=== PATIENT | female | born 1950 | race Caucasian/White ===

== ENCOUNTER → 2021-01-12 10:46 | Outpatient (CLI) | payer OTHER, SELFPAY ==
--- NOTE | ~2021-01-12 | MM_ITS ---
EXAMINATION: MM screening [facility] BI w guillermo HISTORY: Screening mammogram TECHNIQUE: Craniocaudal and mediolateral oblique 3-D tomosynthesis images were obtained and synthetic 2-D images were generated. CAD analysis was submitted and interpreted. COMPARISON: 03/21/2019, 02/06/2018 BREAST PARENCHYMAL COMPOSITION: There are scattered areas of fibroglandular density. FINDINGS: There is no evidence of suspicious mass, calcification, or architectural distortion to sugg est malignancy in either breast. There has been no suspicious interval change. IMPRESSION: 1. No mammographic evidence of malignancy. 2. Recommend routine screening mammography in one year. BI-RADS Category 1: Negative Reviewed, dictated and finalized at location A. [facility]
== END ==
PROVIDERS: PCP Internal Medicine; Visit Provider Internal Medicine
DX: Z12.31 Encounter for screening mammogram for malignant neoplasm of breast (principal)
CPT/HCPCS: 77063; 77067

== ENCOUNTER 2021-08-29 21:36 | Emergency (ER) | payer OTHER, SELFPAY ==
[2021-08-29 21:39] VITALS: BP 150/61; PULSE 78; RESP 16; TEMP 36.4; O2SAT 97
--- NOTE | 2021-08-29 21:57 | PC.NURSE ---
vorb for erythromycin ointment x1 from dr sandoval
--- NOTE | 2021-08-29 21:58 | ED.EYEPROB ---
HPI - Eye Problem General Chief complaint: Eye Problems Stated complaint: herminia in eye Time Seen by Provider: 08/29/21 21:45 Source: patient History of Present Illness HPI Narrative: Patient presents with a foreign body sensation in her eye. Patient first was watching the fireworks and felt like herminia got into her eye. She is attempted to rinse her eye out multiple times without relief of her symptoms so she came to the ER for further evaluation. Reports a foreign body sensation in her eye is painful sharp constant no clear aggravating alleviating factors. Symptoms did not worsen with bright lights. She denies any pain around the eye denies any blurry vision or changes in vision. Patient reports history of cataract surgery denies any contact lens use. Related Data Home Medications Medication Instructions Recorded Confirmed levothyroxine 100 mcg tablet tablet 08/29/21 (Synthroid) losartan 25 mg tablet tablet 08/29/21 rosuvastatin 10 mg tablet tablet 08/29/21 Allergies Allergy/AdvReac Type Severity Reaction Status Date / Time Penicillins Allergy Mild Hives Verified 08/29/21 21:58 Review of Systems Review of Systems: CONSTITUTIONAL: Denies fever, chills, or sweats. EYES: Denies visual changes, redness, or discharge. ENT: Denies rhinorrhea, congestion, sore throat, or otalgia. CARDIOVASCULAR: Denies chest pain, palpitations, or edema. RESPIRATORY: Denies cough or dyspnea. GASTROINTESTINAL: Denies abdominal pain, nausea, vomiting, or diarrhea. GENITOURINARY: Denies dysuria or hematuria. SKIN: Denies rash or itching. MUSCULOSKELETAL: Denies back pain, joint pain, or myalgia. NEUROLOGIC: Denies headache, numbness, dizziness, or weakness. PSYCHIATRIC: Denies anxiety or depression. All systems reviewed & are unremarkable except as noted in HPI and below PMFSH Surgical History Surgical History (Updated 08/29/21 @ 22:02 by Austin Aguayo MD) History of cataract surgery Social History Social History (Updated 08/29/21 @ 22:02 by Austin Aguayo MD) Living arrangements: with family Exam Narrative: GENERAL: Well-appearing, well-nourished, and in no acute distress. HEAD: Normocephalic, atraumatic. EYES: PERRLA and EOMI. no foreign body identified, there was fluorescein uptake on the lower medial aspect of the cornea no corneal ulcer appreciated no hyphema appropriate on appreciated ENT: Nares clear, no rhinorrhea or epistaxis. Mucous membranes moist. NECK: Supple. No masses. EXTREMITIES: Normal range of motion. No edema. SKIN: Warm, dry, no rash. NEURO: No focal deficits. Alert and oriented x3. PSYCH: Normal mood and affect. Course Reevaluation(s) Reevaluation #1: Patient had large improvement after Alcaine application primary concern is for corneal abrasion. Patient is appropriate for outpatient supportive therapies. Date: 08/29/21 Time: 22:09 Vital Signs Vital signs: Vital Signs Temperature 36.4 C 08/29/21 21:39 Pulse Rate 78 08/29/21 21:39 Respiratory Rate 16 08/29/21 21:39 Blood Pressure 150/61 H 08/29/21 21:39 Pulse Oximetry 97 08/29/21 21:39 Oxygen Delivery Room Air 08/29/21 21:39 Temperature 36.4 C 08/29/21 21:39 Pulse Rate 78 08/29/21 21:39 Respiratory Rate 16 08/29/21 21:39 Blood Pressure 150/61 H 08/29/21 21:39 Pulse Oximetry 97 08/29/21 21:39 Oxygen Delivery Room Air 08/29/21 21:39 MDM - Eye Problem MDM Narrative Medical decision making narrative: H&P as above, vss, pt looks clinically well, exam with fluorescein uptake in the left eye, labs/img considered, symptomatic relief available as needed, on reevaluation pt continues to looks clinically well. Suspect corneal abrasion, dns corneal ulceration open globe iritis plan to tx/monitor as op w/ pcm f/u findings/plan discussed with pt, pt agree/comfortable with plan, return precautions given Discharge Plan Discharge Clinical Impression: Abrasion, corneal Qualifiers: Encounter type:
== END 2021-08-29 22:19 | disposition home or self-care (01) ==
PROVIDERS: Emergency Provider Emergency Medicine; PCP Internal Medicine
DX: S05.02XA Injury of conjunctiva and corneal abrasion without foreign body, left eye, initial encounter (principal); X58.XXXA Exposure to other specified factors, initial encounter
CPT/HCPCS: 99283; A9270

== ENCOUNTER 2022-06-12 00:50 | Day surgery (SDC) | payer OTHER, SELFPAY ==
[2022-05-30 13:30] VITALS: BMI 26.4
--- NOTE | 2022-06-11 10:39 | PM.HPGS ---
History of Present Illness History of Present Illness Consent: Risks, benefits, and alternatives have been discussed and questions answered. Patient agrees to proceed with procedure. Chief complaint: neoplasm screening Narrative: Halle Delgado is a 71 year old female here for colon cncer screening Review of Systems Review of Systems: All systems reviewed & are unremarkable except as noted in HPI and below PMFSH Surgical History Surgical History History of cataract surgery Social History Social History Smoking status: Former smoker Tobacco type: cigarettes Substance use type: does not use Living arrangements: with family Spiritual care concerns: No Meds Home Medications and Allergies Home Medications Medication Instructions Recorded Confirmed Type levothyroxine 100 mcg tablet 100 mcg PO DAILY 08/29/21 05/30/22 History (Synthroid) losartan 25 mg tablet 25 mg PO DAILY 08/29/21 05/30/22 History rosuvastatin 10 mg tablet 10 mg PO DAILY 08/29/21 05/30/22 History aspirin 81 mg tablet 81 mg PO DAILY 05/30/22 05/30/22 History calcium carbonate 600 mg-vitamin 1 tablet PO DAILY 05/30/22 05/30/22 History D3 20 mcg (800 unit) chewable tablet (Caltrate 600 plus D) semaglutide 0.25 mg or 0.5 mg (2 0.25 mg subcut WEEKLY 05/30/22 05/30/22 History mg/3 mL) subcutaneous pen injector (Ozempic) Allergies Allergy/AdvReac Type Severity Reaction Status Date / Time Penicillins Allergy Mild Hives Verified 06/12/22 10:55 Exam Resp: Auscultation: clear to auscultation bilaterally Cardio: Rate: regular rate Rhythm: regular rhythm GI: GI Palp: Yes Soft to palpation and No Tenderness to palpation present (GI) Assessment and Plan Assessment and plan (1) Colon cancer screening: Code(s): Z12.11 - Encounter for screening for malignant neoplasm of colon Status: Acute Assessment and Plan: Colonoscopy with possible biopsy or polypectomy or cautery or injection of substances.
[2022-06-12 10:56] VITALS: BP 128/58; PULSE 87; RESP 20; TEMP 36.3; O2SAT 99
--- NOTE | 2022-06-12 11:08 | P.PNAN_ITS ---
Anes - Initial Pre Proc Eval Procedure: Operation Date: 06/12/22 12:30 Proposed Procedures p Screening Colonoscopy - Silverio Pineda MD Date/Time: 06/12/22 11:08 Surgeon: Silverio Pineda MD Pre Op Diagnosis: neoplasm screening Patient Data Age: 71 Gender: F Height: 1.7 m Weight: 75.5 kg Last Vital Signs Temp 97.4 F L 06/12/22 10:56 Pulse 87 06/12/22 10:56 Resp 20 06/12/22 10:56 BP 128/58 L 06/12/22 10:56 Pulse Ox 99 06/12/22 10:56 O2 Del Method Room Air 06/12/22 10:56 Allergies Allergy/AdvReac Type Severity Reaction Status Date / Time Penicillins Allergy Mild Hives Verified 06/12/22 10:55 Home Medications Medication Instructions Recorded Confirmed Type levothyroxine 100 mcg tablet 100 mcg PO DAILY 08/29/21 05/30/22 History (Synthroid) losartan 25 mg tablet 25 mg PO DAILY 08/29/21 05/30/22 History rosuvastatin 10 mg tablet 10 mg PO DAILY 08/29/21 05/30/22 History aspirin 81 mg tablet 81 mg PO DAILY 05/30/22 05/30/22 History calcium carbonate 600 mg-vitamin 1 tablet PO DAILY 05/30/22 05/30/22 History D3 20 mcg (800 unit) chewable tablet (Caltrate 600 plus D) semaglutide 0.25 mg or 0.5 mg (2 0.25 mg subcut WEEKLY 05/30/22 05/30/22 History mg/3 mL) subcutaneous pen injector (Ozempic) Patient hx anesthesia problems: none Family hx anesthesia problems: none Results Review: All pre-operative results and documents have been reviewed as part of the pre- operative evaluation. [facility] Surgical History Surgical History (Updated 08/29/21 @ 22:02 by Austin AguayoMD) History of cataract surgery Social History Social History (Updated 08/29/21 @ 22:02 by Austin AguayoMD) Smoking status: Former smoker Tobacco type: cigarettes Substance use type: does not use Living arrangements: with family Spiritual care concerns: No Anes - Eval Final PreProcedure Day of Procedure 06/12/22 11:08 Patient weight: normal Heart: regular rate and rhythm Lungs: clear to auscultation Airway: Mallampati scale class II Neurological: alert and oriented Last oral intake: >/= 8 hours ASA classification: III Emergent: no Anesthetic plan: proceed Anesthesia type and monitoring: general GIVS and standard monitoring Results Review: All pre-operative results and documents have been reviewed as part of the pre- operative evaluation. Informed Consent: The patient's anesthetic plan and its attendant risks and benefits were discussed with the patient/family/POA. Questions were solicited and answers provided to the satisfaction of the patient/family/POA.
[2022-06-12] MEDS: LACTATED RINGERS 1,000 ML 150 ML IV CONT (11:13)
[2022-06-12 11:15] LABS: Glucose Point of Care 96 mg/dl (65-105)
[2022-06-12 12:25] VITALS: BP 114/48; PULSE 77; RESP 21; O2SAT 95
[2022-06-12 12:35] VITALS: BP 108/49; PULSE 73; RESP 22; O2SAT 95
[2022-06-12 12:45] VITALS: BP 109/54; PULSE 72; RESP 22; O2SAT 100
== END 2022-06-12 12:53 | disposition home or self-care (01) ==
PROVIDERS: PCP Internal Medicine; Visit Provider Internal Medicine Gastroenterology
PROC: 0DJD8ZZ Inspection of Lower Intestinal Tract, Via Natural or Artificial Opening Endoscopic (ICD-10-PCS; CPT 45378; principal; 2022-06-12 12:30)
DX: Z12.11 Encounter for screening for malignant neoplasm of colon (principal); K57.30 Diverticulosis of large intestine without perforation or abscess without bleeding; K64.8 Other hemorrhoids; Z79.82 Long term (current) use of aspirin; Z79.899 Other long term (current) drug therapy; Z87.891 Personal history of nicotine dependence
CPT/HCPCS: 45378; 82948; J2704; J7120

== ENCOUNTER → 2022-07-18 11:54 | Outpatient (CLI) | payer OTHER, SELFPAY ==
--- NOTE | ~2022-07-18 | MM_ITS ---
EXAMINATION: MM screening [facility] BI w guillermo HISTORY: Screening mammogram TECHNIQUE: Craniocaudal and mediolateral oblique 3-D tomosynthesis images were obtained and synthetic 2-D images were generated. CAD analysis was submitted and interpreted. COMPARISON: 01/12/2021, 03/21/2019, 02/06/2018 BREAST PARENCHYMAL COMPOSITION: There are scattered areas of fibroglandular density. FINDINGS: No suspicious mass, calcification, or architectural distortion are identified in either luis armando ast to suggest malignancy. There has been no suspicious interval change. IMPRESSION: 1. No mammographic evidence of malignancy. 2. Recommend routine screening mammography in one year. BI-RADS Category 1: Negative Reviewed, dictated and finalized at location A.
== END ==
PROVIDERS: PCP Internal Medicine; Visit Provider Internal Medicine
DX: Z12.31 Encounter for screening mammogram for malignant neoplasm of breast (principal)
CPT/HCPCS: 77063; 77067

== ENCOUNTER 2023-11-21 13:57 | Emergency (ER) | payer OTHER, SELFPAY ==
--- NOTE | ~2023-11-21 | CT_ITS ---
EXAMINATION: 1. CT facial & cervical spine wo DATE: 11/21/2023 14:37 INDICATION: Fall with head and facial injury TECHNIQUE: 1. Computed tomography (CT) of the maxillofacial region and of the cervical spine were performed with out intravenous contrast. Sagittal and coronal reconstructions of both regions were obtained. Automat ed exposure control and iterative reconstruction technique were employed. The dose-length product was 251.45 mGy-cm. COMPARISON: None. FINDINGS: Maxillofacial CT: There is mild angulation without displacement of the right nasal bone consistent with age indetermina te fracture. There is however some soft tissue swelling along the bridge of the nose which suggests t his may be acute. No other maxillofacial fractures identified. Specifically the mandible, zygomatic a rches and sidhu of the orbits and paranasal sinuses are intact. Nasal septum is midline and without e vident fracture. Changes of bilateral intraocular lens replacement. The orbits are otherwise unremark able. Cervical spine CT: Mild cervicothoracic dextrocurvature. Sagittal alignment is normal. Vertebral body heights are normal . No fracture. Moderate to severe disc height loss at C3-C4 and C4-C5. Moderate disc height loss at C 5-C6 and mild disc height loss at C2-C3. There are severe uncovertebral osteoarthritis and posterior disc osteophyte complexes at C3-C4 through C5-C6, the latter resulting in mild central canal stenosis at each of these levels. Multilevel bilateral facet osteoarthritis, severe in the upper thoracic spi ne and on the left at C3-C4 with mild to moderate facet osteoarthritis and remainder of the cervical spine. There is moderate neural foraminal stenosis on the left at C3-C4 with mild neural from stenosi s at many of the remaining cervical levels. Cervical soft tissues are unremarkable. Partially calcifi ed biapical pleural-parenchymal scarring. IMPRESSION: 1. Likely acute nondisplaced mildly angulated right nasal bone fracture. 2. Mild cervicothoracic dextrocurvature with moderate to severe spondylosis and no acute osseous abno rmality. Reviewed, dictated and finalized at location A. IMPRESSION: 1. Likely acute nondisplaced mildly angulated right nasal bone fracture. 2. Mild cervicothoracic dextrocurvature with moderate to severe spondylosis and no acute osseous abnormality.
--- NOTE | ~2023-11-21 | CT_ITS ---
EXAMINATION: CT brain wo con DATE: 11/21/2023 14:37 INDICATION: Fall with head and facial injury TECHNIQUE: Computed tomography (CT) of the head was performed without intravenous contrast. Sagittal and coronal reconstructions were performed. The mA was adjusted according to patient size. Iterative reconstruction technique was employed. The dose-length product was 605.33 mGy-cm. COMPARISON: None FINDINGS: Mild angulation along the right nasal bone consistent with age indeterminate fracture. No calvarial f racture. No acute intracranial hemorrhage, acute infarction or abnormal extra axial fluid collection. Symmetric prominence of the sulci consistent with mild age-appropriate diffuse cerebral volume loss. Ventricles are normal and symmetric. No mass/mass effect. Changes of bilateral intraocular lens rep lacement. The orbits, paranasal sinuses and mastoid air cells are normal. IMPRESSION: 1. Normal aging brain. No acute intracranial process. 2. Nondisplaced, mildly angulated age-indeterminate right nasal bone fracture Reviewed, dictated and finalized at location A.
--- NOTE | ~2023-11-21 | XR_ITS ---
XR knee RT 3V Ordering provider: Bertin Delatorre MD History: . trauma . Comparison: None. FINDINGS: BONES: Fracture of the inferior aspect of the patella. JOINT SPACES: Normal. SOFT TISSUES: Normal. IMPRESSION: Fracture inferior patella. Reviewed, dictated and finalized at location A. IMPRESSION: Fracture inferior patella.
[2023-11-21 13:58] VITALS: PULSE 87; RESP 19; TEMP 36.7; O2SAT 100
[2023-11-21 14:14] VITALS: BP 145/63; PULSE 75; RESP 13; O2SAT 97
[2023-11-21] MEDS: MORPHINE SULFATE (*CRX) 4 MG/ML INJ 2 MG IV PUSH (14:22)
[2023-11-21 15:40] VITALS: BP 147/65; PULSE 75; RESP 16; O2SAT 98
--- NOTE | 2023-11-21 15:40 | ED.FALL ---
HPI - Fall General Chief Complaint: Fall Stated Complaint: fall Time Seen by Provider: 11/21/23 14:02 History of Present Illness HPI Narrative: Patient is a 73-year-old female who presents ER after a fall. She tripped on a curb. She struck her face on the ground. She has pain over her nose and forehead. No LOC. She is not on blood thinning medication. She does have a laceration over her forehead. She also reports pain to the right knee where there is some bruising over the patella. Related Data Home Medications Medication Instructions Recorded Confirmed levothyroxine 100 mcg tablet 100 mcg PO DAILY 08/29/21 05/30/22 (Synthroid) losartan 25 mg tablet 25 mg PO DAILY 08/29/21 05/30/22 rosuvastatin 10 mg tablet 10 mg PO DAILY 08/29/21 05/30/22 aspirin 81 mg tablet 81 mg PO DAILY 05/30/22 05/30/22 calcium carbonate 600 mg-vitamin 1 tablet PO DAILY 05/30/22 05/30/22 D3 20 mcg (800 unit) chewable tablet (Caltrate 600 plus D) semaglutide 0.25 mg or 0.5 mg (2 0.25 mg subcut WEEKLY 05/30/22 05/30/22 mg/3 mL) subcutaneous pen injector (Ozempic) Allergies Allergy/AdvReac Type Severity Reaction Status Date / Time Penicillins Allergy Mild Hives Verified 11/21/23 14:14 Review of Systems Review of Systems: All systems reviewed & are unremarkable except as noted in HPI and below Constitutional: Constitutional: Reports no additional constitutional complaints Cardiovascular: Cardiovascular: Reports no additional cardiovascular complaints Respiratory: Respiratory: Reports no additional respiratory complaints Gastrointestinal: Gastrointestinal: Reports no additional gastrointestinal complaints Musculoskeletal: Musculoskeletal: Reports arthralgias, Denies joint swelling and Denies muscle cramps Integumentary/Breasts: Skin/Breast: Reports system reviewed and no additional complaints, except as docu [facility] Past Medical History Medical History (Updated 11/21/23 @ 20:52 by Bertin Delatorre MD) Hypothyroidism Surgical History Surgical History (Updated 11/21/23 @ 20:52 by Bertin Delatorre MD) History of cataract surgery History of cholecystectomy Social History Social History Smoking status: Former smoker Tobacco type: cigarettes Substance use type: does not use Living arrangements: with family Spiritual care concerns: No Exam Narrative: GENERAL: Uncomfortable-appearing, well-nourished, and in no acute distress. HEAD: Normocephalic, 4 cm vertical laceration midline forehead, 1 cm horizontal laceration upper forehead. ENT: Mucous membranes moist. Abrasion over the bridge of nose with tenderness. Abrasion upper lip. NECK: Supple. C-spine immobilized CHEST: Clear to auscultation. No respiratory distress. HEART: Regular rate and rhythm. Normal peripheral pulses. ABDOMEN: Soft, nontender, nondistended. EXTREMITIES: Normal range of motion. No edema. Mild tenderness over right patella SKIN: Warm, dry, no rash. NEURO: Alert and oriented x3. PSYCH: Normal mood and affect. Course Course Emergency Course: Patient fitted with a knee immobilizer and given crutch training. Educated on nasal bone fracture, patellar fracture, and wound care. Remove sutures in 5-7 days. Patient has an up-to-date tetanus status. Vital Signs Vital signs: Vital Signs Temperature 98.0 F 11/21/23 13:58 Pulse Rate 87 11/21/23 13:58 Respiratory Rate 19 11/21/23 13:58 Pulse Oximetry 100 11/21/23 13:58 Oxygen Delivery Room Air 11/21/23 13:58 Temperature 98.0 F 11/21/23 13:58 Pulse Rate 75 11/21/23 15:40 Respiratory Rate 16 11/21/23 15:40 Blood Pressure 147/65 H 11/21/23 15:40 Pulse Oximetry 98 11/21/23 15:40 Oxygen Delivery Room Air 11/21/23 13:58 Procedures Laceration Laceration 1: Date: 11/21/23 Time: 15:40 Site: face (forehead) Size (cm): 4 Description: linear
== END 2023-11-21 16:08 | disposition home or self-care (01) ==
PROVIDERS: Emergency Provider Emergency Medicine; PCP Internal Medicine
DX: S02.2XXA Fracture of nasal bones, initial encounter for closed fracture (principal); S82.091A Other fracture of right patella, initial encounter for closed fracture; S01.81XA Laceration without foreign body of other part of head, initial encounter; E03.9 Hypothyroidism, unspecified; Z98.49 Cataract extraction status, unspecified eye; Z90.49 Acquired absence of other specified parts of digestive tract; W10.1XXA Fall (on)(from) sidewalk curb, initial encounter
CPT/HCPCS: 12013; 70450; 70486; 72125; 73562; 96374; 99284; J2270